=== PATIENT | female | born 1990 | race Caucasian/White ===

== ENCOUNTER 2019-10-21 10:23 | Emergency (ER) | payer OTHER ==
--- OUTSIDE RECORDS SUMMARY | 2019-10-21 10:31 | XMS REPORT | Continuity of Care Document ---
:1990 External Reference #:[id number] Author Name Maylin Carter FNP (transmitted by agent of provider Latia Frank) Address [address] [place] [id number] Care Team Providers Name Role Phone Kalpana Fox PA - Medical Care Team Information Clerical Associate [phone] Problems Active Problems Provider Date Migraine with aura Tish Rivera FNP Onset: 06/15/2013 Migraine without aura, not refractory Kalani Woodson M.D. Onset: 04/13/2016 Social History Type Date Description Comments Sex Unknown Tobacco Use Start: Unknown Never Smoked Cigarettes ETOH Use Denies alcohol use Tobacco Use Start: Unknown Patient has never smoked Smoking Status Reviewed: 06/17/19 Patient has never smoked Allergies, Adverse Reactions, Alerts Active Allergies Reaction Severity Comments Date NKDA 06/30/2012 Seasonal 06/30/2012 Bee Sting Facial swelling 12/29/2018 Medications Active Medications SIG Qnty Indications Ordering Provider Date Apri 1 by mouth every 28tabs Z30.8 Latia Frank, 06/17/2019 0.15-30mg-mcg day MD Tablets Tylenol take 2 tablets by Unknown 325mg Tablets mouth every 4-6 hours as needed for pain. -otc History Medications Flagyl take 1 tablet by 14tabs Latia Frank, 06/19/2019 - 500mg Tablets mouth 2 times per MD 06/26/2019 day for 7 days for vaginosis caused by bacteria Cleocin [address] of 3units Latia Frank, 06/18/2019 - 100mg vagina at bedtime 06/19/2019 Suppository for 3 nights. Lice Killing as directed 236ml Desirae Sanchez, 04/13/2019 - 4-0.33% PNP-BC, 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, 04/18/2019 Shampoo Ibclc Clarinex 1 by mouth every 30tabs J30.9 Latia Frank 03/09/2019 - 5mg Tablets day 03/30/2019 Fluticasone 1 spray to each 9.9units J30.9 Latia Frank, 03/09/2019 - Propionate nare every day 03/30/2019 50mcg/Act Suspension Metronidazole 1 tab by mouth 14tabs Latia Frank, 03/09/2019 - 250mg twice a day for 7 MD 03/16/2019 Tablets days Medications Administered in Office Medication SIG Qnty Indications Ordering Provider Date Depomedroxyporgesterone 150MG Kalpana Fox PA 03/30/2019 Injection Depomedroxyporgesterone 150MG Family Nurse 01/01/2019 Injection Depomedroxyporgesterone 150MG Family Nurse 10/13/2018 Injection Depomedroxyporgesterone 150MG Family Nurse 06/27/2018 Injection Depomedroxyporgesterone 150MG Family Nurse 02/18/2018 Injection Depomedroxyporgesterone 150MG Desirae Sanchez, 02/18/2018 Injection 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, 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, 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 Theraputic Or Diagnostic Injection Desirae Sanchez, 02/18/2018 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, 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, 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 Immunizations Description No Information Available Vital Signs Date Vital Result Comment 06/17/2019 4:15pm BP Systolic Sitting Left Arm 122 mmHg BP Diastolic Sitting Left Arm 76 mmHg Body Temperature 98.2 F Heart Rate 98 /min Respiratory Rate 20 /min Height 68 inches 5'8" Weight 280.25 lb BMI (Body Mass Index) 42.6 kg/m2 BSA (Body Surface Area) 2.36 m2 [place] body weight in kilograms 63 kg O2 % BldC Oximetry 98 % 03/30/2019 9:57am BP Systolic 114 mmHg BP Diastolic 70 mmHg Body Temperature 98.2 F Heart Rate 96 /min Respiratory Rate 18 /min Height 68 inches 5'8" Weight 259.00 lb BMI (Body Mass Index) 39.4 kg/m2 BSA (Body Surface Area) 2.28 m2 [place] body weight in kilograms 63 kg O2 % BldC Oximetry 98 % Results Test Acquired Date Facility Test Result H/L Range Note CBC 06/17/2019 [facility] [address] White Blood 11.6 K/uL High 3.1-10.7 1 W/Automated [address] [address] [phone] Red Blood Count 4.79 M/uL Normal 3.90-5.40 Hemoglobin 12.8 gm/dL Normal 11.6-15.8 Hematocrit 39.8 % Normal 36.0-46.1 Mean Cell Volume 83.1 fl Normal 80.9-99.0 Mean Corpuscular HGB 26.7 pg Normal 25.9-32.7 Mean Corpuscular HGB Conc 32.2 g/dL Normal 30.8-34.3 Platelet Count 342 K/uL Normal 155-360 Red Cell Distri Width SD 40.6 fl Normal 36-47 Red Cell Distri Width %CV 13.6 % Normal 11.7-14.4 Mean Platelet Volume 10.4 fl Normal 8.9-12.4 Neut% 65.5 % Normal 40.4-72.8 Lymph % 29.3 % Normal 20.0-42.0 [place] % 3.6 % Low 4.3-13.2 Eo% 0.7 % Normal 0.0-6.6 Bas% 0.5 % Normal 0.0-1.1 Immature Grans 0.4 % Normal 0.0-5.0 NRBC % 0.0 /100WBC < 10/ 100 WBC Neut# 7.58 K/uL High 1.8-7.0 Lymph # 3.39 K/uL Normal 1.0-4.0 [place] # 0.42 K/uL Normal 0.3-0.9 Eos # 0.08 K/uL Normal 0.0-0.5 Baso # 0.06 K/uL Normal 0.0-0.1 Immature Grans Absolute 0.05 K/uL NRBC # 0.00 K/uL Comprehensive 06/17/2019 [facility] [address] Glucose 74 mg/dL Normal 74-106 Metabolic Panel [address] [place] [address] [phone] BUN 13 mg/dL Normal 7-18 Creatinine 0.6 mg/dL Normal 0.6-1.3 Glom Filtration Rate, Estimate >60 mL/min >60 If >60 mL/min >60 2 BUN/Creat 21.6 ratio Sodium 138 mmol/L Normal 136-145 Potassium 3.9 mmol/L Normal 3.5-5.1 Chloride 109 mmol/L High 98-107 Carbon Dioxide 23 mmol/L Normal 21-32 Anion Gap 6 mEq/L Low 8-16 Calcium 9.0 mg/dL Normal 8.5-10.1 Total Protein 7.5 g/dL Normal 6.4-8.2 Albumin 3.9 g/dL Normal 3.4-5.0 Globulin 3.6 g/dL Normal 1.9-4.3 Alb/Glob 1.1 ratio Bilirubin,Total 0.5 mg/dL Normal 0.2-1.0 Sgot/Ast 14 U/L Low 15-37 3 SGPT/Alt 25 U/L Normal 12-78 Alkaline Phosphatase 101 U/L Normal 45-117 Reflex add FT3? Y Reflex add FT4? Y FSH 06/17/[address] FSH 6.9 mIU/mL 4 [address] [place], [place] [id number] [phone] Reflex add FT3? Y Reflex add FT4? Y Luteinizing Hormone 06/17/[address] Luteinizing Hormone 3.8 mIU /mL 5 [address] [place], [place] [id number] [phone] Reflex add FT3? Y Reflex add FT4? Y Prolactin 06/17/[address] Prolactin 6.0 ng/mL 6 [address] [place], [place] [id number] [phone] Reflex add FT3? Y Reflex add FT4? Y TSH Reflex 06/17/[address] Thyroid Stim 2.10 uIU/mL Normal 0.30-4.20 FT4 And/Or [address] [facility] Hormone FT3 [place], [place] [id number] [phone] Reflex add FT3? Y Reflex add FT4? Y HCG, Quant 06/17/[address] HCG, Quant < 1.0 mIU/mL 7 [address] [place], [place] [address] [phone] Reflex add FT3? Y Reflex add FT4? Y Affirm 06/17/[address] Trichomonas Negative [Negative] Vaginitis [address] [facility] [place] [address] [phone] Gardnerella vaginalis POSITIVE Abnormal [Negative] Lucy species Negative [Negative] 8 Urine Culture 06/17/[address] Urine Culture MIXED URETHRAL F < SEE 9 [address] [facility] NOTE> [place] [address] [phone] Quantity 10,000 - 50,000 <SEE NOTE> 10 Urine Dipstick 03/30/2019 [facility] Ua Color yellow Yellow Ua Clarity clear Clear Ua Leuko negative Negative Ua Nitrite negative Negative Ua Urobilinogen 0.2 0.2 - 1.0 E.U./dL Ua Protein negative Negative Ua PH 6.0 Low 6.5-7.5 Ua Blood negative Negative Ua Specific [place] 1.025 1.010-1.030 Ua Ketones negative Negative Ua Bilirubin negative Negative Ua Glucose negative Negative Urine Culture 03/30/[address] Urine Culture URETHRAL RORY [address] [place] [address] [phone] Quantity 10,000 - 50,000 <SEE NOTE> 11 Chlam/GC/Trichomonas 03/30/[address] Ur Trichomonas NEGATIVE Negative PCR, Ur [address] vaginalis,[place] [address] [phone] Ur Chlamydia trachomatis,PCR NEGATIVE Negative Ur Neisseria gonorrhoeae,PCR NEGATIVE Negative 12 Affirm 03/30/[address] Trichomonas Negative [Negative] Vaginitis [address] [facility] [place] [address] [phone] Gardnerella vaginalis Negative [Negative] Lucy species Negative [Negative] 13 Urine Dipstick 03/09/2019 [facility] Ua Color Yellow Yellow Ua Clarity Clear Clear Ua Leuko Negative Negative Ua Nitrite Negative Negative Ua Urobilinogen 3.5 High 0.2 - 1.0 E.U./dL Ua Protein Negative Negative Ua PH 6.0 Low 6.5-7.5 Ua Blood Negative Negative Ua Specific [place] 1.025 1.010-1.030 Ua Ketones Negative Negative Ua Bilirubin Negative Negative Ua Glucose Negative Negative Chlam/GC/Trichomonas 03/09/[address] Ur Trichomonas NEGATIVE Negative 14 PCR, Ur [address] vaginalis,[place] [address] [phone] Ur Chlamydia trachomatis,PCR NEGATIVE Negative Ur Neisseria gonorrhoeae,PCR NEGATIVE Negative 15 Laboratory test 03/09/[address] Treponema <pending> finding [address] [place] [address] [phone] Laboratory test 03/09/[address] HSV Type I <pending> finding [address] [place] [address] [phone] Affirm V[facility]initis 03/09[facility] [facility] Trich[facility] Negative [ Negat Panel [address] vaginalis reddy] [place] [address] [phone] Gardnerella vaginalis POSITIVE Abnormal [Negative] Lucy species Negative [Negative] 16 HIV 1/2 Rapid 03/09/2019 [facility] HIV 1/2 Non-Reactive [address] [place] [address] [phone] Hepatitis 03/09/[address] Hepatitis A Negative Negative Evaluation [address] [place] [address] [phone] HBsAg Screen [Ref Lab] Negative Negative Hepatitis B Core IgM Negative Negative HCV Signal/Cutoff ratio 0.1 s/corat 0.0-0.9 18 Laboratory test 03/09/[address] [facility] Treponema Negative Negative [address] [place] [address] [place] [phone] HSV Types 1 & 03/09/[address] [facility] HSV IgM I/II <0.91 0.00-0.90 20 2, Igm [address] [place] [address] [phone] Comprehensive 03/09/[address] Glucose 91 mg/dL Normal 74-106 Metabolic Panel [address] [place] [address] [phone] BUN 10 mg/dL Normal 7-18 Creatinine 0.7 mg/dL 0.6-1.3 Glom Filtration Rate, Estimate >60 mL/min >60 If >60 mL/min >60 21 BUN/Creat 14.2 ratio Sodium 141 mmol/L Normal 136-145 Potassium 3.8 mmol/L Normal 3.5-5.1 Chloride 109 mmol/L High 98-107 Carbon Dioxide 26 mmol/L Normal 21-32 Anion Gap 6 mEq/L Low 8-16 Calcium 8.7 mg/dL Normal 8.5-10.1 Total Protein 7.6 g/dL Normal 6.4-8.2 Albumin 4.1 g/dL Normal 3.4-5.0 Globulin 3.5 g/dL Normal 1.9-4.3 Alb/Glob 1.2 ratio Bilirubin,Total 1.1 mg/dL High 0.2-1.0 Sgot/Ast 17 U/L Normal 15-37 SGPT/Alt 43 U/L Normal 12-78 Alkaline Phosphatase 116 U/L Normal 45-117 Reflex add FT3? Y Reflex add FT4? Y TSH Reflex 03/09/2019 [facility] [address] Thyroid Stim 0.85 uIU/mL Normal 0.30-4.20 FT4 And/Or [address] Hormone FT3 [place] [id number] [phone] Reflex add FT3? Y Reflex add FT4? Y 1 N76.0 2 Note: Persistent reduction for 3 months or more in an eGFR <60 mL/min/1.73 m2 defines CKD. Patients with eGFR values >/=60 mL/min/1.73 m2 may also have CKD if evidence of persistent proteinuria is present. The original MDRD equation for estimated GFR is not valid for patients less than 18 years of age. Additional information may be found at www.kdoqi.org. 3 Values below the stated reference ranges of AST and ALT can be seen in normal populations. Clinical correlation is suggested. 4 NORMALLY MENSTRUATING FEMALES: Follicular Phase:............... 2.3-12.6 mIU/mL Mid-Cycle Peak:................. 5.2-17.5 mIU/mL Luteal Phase:................... 1.7-9.5 mIU/mL POSTMENOPAUSAL FEMALES: On menopausal hormone therapy (MHT)... 5.9-72.8 mIU/mL Not on MHT ........................... 12.7-132.2 mIU/mL 5 Pubertal adults FEMALES, menstrual cycle phases: Follicular Phase............. 1.9-12.8 mIU/mL Mid-Cycle Peak............... 22.2-76.1 mIU/mL Luteal Phase................. 0.6-13.5 mIU/mL Post-meonpausal FEMALE: On menopausal hormone therapy (MHT) ... 1.1-52.4 mIU/mL Not on MHT ............................ 8.6-61.8 mIU/mL 6 Non- ..... 2.2-30.3 ng/mL ......... 8.1-347.6 ng/mL Post-Menopausal .. 0.7-31.5 ng/mL 7 Approximate Gestational Age and Total BHCG Range: 0.2 - 1 Week........................5-50 mIU/mL 1 - 2 Weeks.....................50-500 mIU/mL 2 - 3 Weeks..................100-5,000 mIU/mL 3 - 4 Weeks.................500-10,000 mIU/mL 4 - 5 Weeks...............1,000-50,000 mIU/mL 5 - 6 Weeks.............10,000-100,000 mIU/mL 6 - 8 Weeks.............15,000-200,000 mIU/mL 2 - 3 Months............10,000-100,000 mIU/mL 8 Method: BD Affirm VPIII DNA Probe Assay 9 MIXED URETHRAL RORY 10 10,000 - 50,000 CFU/mL 11 10,000 - 50,000 CFU/mL 12 A negative result for either C. trachomatis and/or N. gonorrhoeae does not preclued an infection because results are dependent on adequate specimen collection, absence of inhibitors, and sufficient DNA to be detected. 13 Method: BD Affirm VPIII DNA Probe Assay 14 E04.9 Z11.3 15 A negative result for either C. trachomatis and/or N. gonorrhoeae does not preclued an infection because results are dependent on adequate specimen collection, absence of inhibitors, and sufficient DNA to be detected. 16 Method: BD Affirm VPIII DNA Probe Assay 17 NOTE: A NON-REACTIVE RESULT INDICATES THAT HIV 1/2 ANTIBODIES HAVE NOT BEEN FOUND IN THIS PATIENT SPECIMEN. A NON-REACTIVE RESULT, HOWEVER, DOES NOT PRECLUDE PREVIOUS EXPOSURE OF INFECTION WITH HIV 1/2. Method: Uni-Gold Recombigen HIV 1/2 Rapid Immunoassay [facility] * [place] STATE LAW PROHIBITS THE REDISCLOSURE OF THIS RESULT * * TO ANY UNAUTHORIZED REPUBLICAN. * 18 INFCE Result Units: s/co ratio Negative: < 0.8 Indeterminate: 0.8 - 0.9 Positive: > 0.9 The CDC recommends that a positive HCV antibody result be followed up with a HCV Nucleic Acid Amplification test (602970). 19 Performed at: [address] [id number] Manager Operating: Uzma Shi MD, Phone: [phone] Performed at: [facility] [address] [id number] Manager Operating: Silas Bartlett MD, Phone: [phone] Negative <0.91 Equivocal 0.91 - 1.09 Positive >1.09 Performed at: RN - [facility] [address] [id number] Manager Operating: Uzma Shi MD, Phone: [phone] Note: Persistent reduction for 3 months or more in an eGFR <60 mL/min/1.73 m2 defines CKD. Patients with eGFR values >/=60 mL/min/1.73 m2 may also have CKD if evidence of persistent proteinuria is present. The original MDRD equation for estimated GFR is not valid for patients less than 18 years of age. Additional information may be found at www.kdoqi.org. Procedures Date Code Description Status 03/30/2019 14180 Theraputic Or Diagnostic Injection Completed Medical Devices Description No Information Available Encounters Type Date Location Provider Dx Diagnosis Office Visit 06/17/2019 Family Medicine Kalpana Fox PA N76.0 Acute vaginitis 4:15p Tab CORNELIUS Z30.8 Encounter for other contraceptive management N93.9 Abnormal uterine and vaginal bleeding, unspecified Office Visit 03/30/2019 9:45a Family Kalpana Bassett N76.0 Acute vaginitis Tab ENRIQUE Z30.8 Encounter for other contraceptive management Office Visit 03/09/2019 9:45a [facility] Kalpana Bassett Z00.01 Encounter for Tab ENRIQUE general adult medical exam w abnormal findings K21.9 Gastro-esophageal reflux disease without esophagitis R13.10 Dysphagia, unspecified E66.9 Obesity, unspecified J30.9 Allergic rhinitis, unspecified E04.9 Nontoxic goiter, unspecified Z11.3 Encntr screen for infections w sexl mode of transmiss Z12.4 Encounter for screening for malignant neoplasm of cervix Assessments Date Code Description Provider 06/17/2019 N76.0 Acute vaginitis Kalpana Fox PA 06/17/2019 Z30.8 Encounter for other contraceptive management Kalpana Fox PA 06/17/2019 N93.9 Abnormal uterine and vaginal bleeding, Kalpana Fox PA unspecified 03/30/2019 N76.0 Acute vaginitis Kalpana Fox PA 03/30/2019 Z30.8 Encounter for other contraceptive management Kalpana Fox PA 03/09/2019 Z00.01 Encounter for general adult medical examination Kalpana Fox PA with abnormal findings 03/09/2019 K21.9 Gastro-esophageal reflux disease without Kalpana Fox PA esophagitis 03/09/2019 R13.10 Dysphagia, unspecified Kalpana Fox PA 03/09/2019 E66.9 Obesity, unspecified Kalpana Fox PA 03/09/2019 J30.9 Allergic rhinitis, unspecified Kalpana Fox PA 03/09/2019 E04.9 Nontoxic goiter, unspecified Kalpana Fox PA 03/09/2019 Z11.3 Encounter for screening for infections with a Kalpana Fox PA predominantly sexual mode of transmission 03/09/2019 Z12.4 Encounter for screening for malignant neoplasm of Kalpana Fox PA cervix Plan of Treatment 06/17/2019 - Kalpana Fox PAN76.0 Acute hnovmfoaiK04.8 Encounter for other contraceptive managementNew Medication:Apri 0.15-30 mg-mcg - 1 by mouth every dayN93.9 Abnormal uterine and vaginal bleeding, unspecifiedComments:Let's see how the labs come out. Start the OCPs. Will touch base with results and decide on what to do. Functional Status Functional Condition Comment Date Status Independent with all ADL's Active Mental Status Description No Information Available Referrals Refer to Reason for Referral Status Appt Date Malcom Cortés MD Chronic reflux and recent dysphagia Patient Declined 02/2019 reported. Patient has been using [facility]. Appt on Mondays preferred. [address] [address] [phone]
[2019-10-21 10:38] VITALS: BP 113/69
--- NOTE | 2019-10-21 11:31 | UC ---
Throat Pain/Nasal Javier HPI - HPI Summary HPI Summary: sore throat x 3 days. nasal congest, pnd, has been having dry cough fever, chills and body aches. been taking Tylenol for fever concern about flu - History of Current Complaint Chief Complaint: UCRespiratory Stated Complaint: FEVER,CONGESTION,ST Time Seen by Provider: 10/21/19 11:24 Hx Obtained From: Patient Hx Last Menstrual Period: unsure of last menses, "coming off of depo" ?: No Onset/Duration: Gradual Onset, Lasting Days - 3, Still Present Severity: Moderate Pain Intensity: 0 Cough: Nonproductive Associated Signs & Symptoms: Positive: Nasal Discharge, Fever. Negative: Drooling, Wheezing, Hoarseness, Sinus Discomfort, Rash - Allergies/Home Medications Allergies/Adverse Reactions: Allergies Allergy/AdvReac Type Severity Reaction Status Date / Time bee venom protein (honey bee) Allergy Anaphylatic Verified 10/21/19 10:33 Shock seasonal allergies Allergy Eyes Uncoded 10/21/19 10:33 Itchy/Swollen/Red/Watery Home Medications: Home Medications NK [No Home Medications Reported] 10/21/19 [History Confirmed 10/21/19] PMH/Surg Hx/FS Hx/Imm Hx Previously Healthy: Yes - Surgical History Surgical History: Yes Surgery Procedure, Year, and Place: Gluteal Abscess and Fistula, 04/08/15, [facility]. [facility]olecystectomy, ~2006, [facility] - Family History Known Family History: Positive: None Negative: Diabetes - Social History Alcohol Use: None Substance Use Type: None Smoking Status (MU): Never Smoked Tobacco Household Exposure Type: Cigarettes - Immunization History Most Recent Influenza Vaccination: not this season Review of Systems All Other Systems Reviewed And Are Negative: Yes Constitutional: Positive: Fever, Chills, Fatigue Skin: Positive: Negative. Negative: Rash Eyes: Positive: Negative ENT: Positive: Sore Throat, Nasal Discharge Respiratory: Positive: Cough Musculoskeletal: Positive: Arthralgia, Myalgia Is Patient Immunocompromised?: No Physical Exam Triage Information Reviewed: Yes Appearance: Well-Appearing, No Pain Distress, Obese Vital Signs: Initial Vital Signs Temp 97.4 F 10/21/19 10:34 Pulse 87 10/21/19 10:34 Resp 16 10/21/19 10:34 BP 113/69 10/21/19 10:34 Pulse Ox 100 10/21/19 10:34 Vital Signs Reviewed: Yes Eye Exam: Normal Eyes: Positive: Conjunctiva Clear ENT: Positive: Normal ENT inspection, Hearing grossly normal, Pharynx normal, Nasal drainage, TMs normal. Negative: Tonsillar swelling, Tonsillar exudate Neck: Positive: Supple, Nontender, No Lymphadenopathy Respiratory: Positive: Chest non-tender, Lungs clear, Normal breath sounds Cardiovascular: Positive: RRR, No Murmur, Pulses Normal Abdominal Exam: Normal Throat Pain/Nasal Course/Dx - Differential Dx/Diagnosis Provider Diagnosis: Viral illness Discharge ED - Sign-Out/Discharge Documenting (check all that apply): Patient Departure All imaging exams completed and their final reports reviewed: No Studies - Discharge Plan Condition: Stable Disposition: HOME Patient Education Materials: Viral Syndrome (ED) Referrals: Kalpana Fox PA [Primary Care Provider] - If Needed - Billing Disposition and Condition Condition: STABLE Disposition: Home
[2019-10-21 11:48] LABS: Influenza A Molecular Negative (Negative); Influenza B Molecular Negative (Negative)
== END 2019-10-21 11:57 | disposition home or self-care (01) ==
LOC: UCCORT 10:23
DX: B34.9 Viral infection, unspecified (principal); J02.9 Acute pharyngitis, unspecified; R09.81 Nasal congestion; R09.82 Postnasal drip; R05 Cough; R09.89 Other specified symptoms and signs involving the circulatory and respiratory systems; Z91.030 Bee allergy status; Z91.09 Other allergy status, other than to drugs and biological substances
CPT/HCPCS: 99211; G0463